=== PATIENT | male | born 1980 | race Caucasian/White ===

== ENCOUNTER 2016-10-03 07:17 | Emergency (ER) | payer SELFPAY ==
[~2016-10-03] VITALS: Ht 175.3 cm; Wt 81.8 kg
[2016-10-03 07:20] VITALS: TEMP 98.2
[2016-10-03 08:37] LABS: BASO # 0.1 (0.0-0.2); BASO % 1.3 % (0.0-2.0); EOS % 0.4 % (0-4.0); GRAN # 4.6 (1.4-6.5); GRAN % 57.2 % (42.2-75.2); HEMATOCRIT 42.6 % (42.0-52.0); HEMOGLOBIN 15.4 g/dl (13.5-18.0); LYMPH # 2.5 (1.2-3.4); LYMPH % 31.3 % (20.0-51.0); MEAN CELL VOLUME 97 fl (80.0-100.0); MEAN CORPUSCULAR HEMOGLOBIN 35 pg (27.0-31.0); MEAN CORPUSCULAR HGB CONC 36 g/dl (33.0-37.0); MEAN PLATELET VOLUME 10.7 fl (7.4-10.4); MONO # 0.8 (0.1-0.6); MONO % 9.5 % (1.7-9.3); PLATELET COUNT 168 K/mm3 (130-400); REDCELL DISTRIBUTION WIDTH-CV 12.6 % (11.5-14.5); WHITE BLOOD COUNT 7.9 K/mm3 (4.8-10.8)
[2016-10-03 09:16] LABS: ADJUSTED CALCIUM 8.7 mg/dL (8.4-10.2); ALANINE AMINOTRANSFERASE 80 U/L (21-72); ALBUMIN 4.4 gm/dL (3.5-5.0); ALKALINE PHOSPHATASE 57 U/L (50-136); ANION GAP 23 mmol/L (7-16); BLOOD UREA NITROGEN 11 mg/dL (9-20); CARBON DIOXIDE 23 mmol/L (22-30); CHLORIDE 98 mmol/L (98-107); CREATININE, serum 0.58 mg/dL (0.66-1.25); GLUCOSE 76 mg/dL (74-106); LIPASE 166 U/L (23-300); MAGNESIUM 1.7 mg/dL (1.6-2.3); POTASSIUM 3.8 mmol/L (3.4-5.0); SODIUM 143 mmol/L (137-145); TOTAL PROTEIN 7.3 gm/dL (6.4-8.2)
[2016-10-03 09:17] LABS: C-REACTIVE PROTEIN < 0.5 mg/dL (0.0-0.9)
[2016-10-03 09:24] LABS: TROPONIN-I < 0.012 ng/mL (0.000-0.034)
[2016-10-03 09:43] LABS: PH 5 (5-8); SQUAMOUS EPITHELIAL 0-2 /hpf; URINE APPEARANCE Clear; URINE BACTERIA None Seen /hpf; URINE BILIRUBIN Negative (NEGATIVE); URINE BLOOD Negative (NEGATIVE); URINE COLOR Yellow; URINE GLUCOSE Negative (NEGATIVE); URINE KETONE 1+ (NEGATIVE); URINE RBC 0-2 /hpf; URINE UROBILINOGEN Negative (NEGATIVE); URINE WBC 0-2 /hpf
[2016-10-03 09:51] LABS: AMMONIA < 9 umol/L (11-35)
[2016-10-03 12:18] VITALS: BP 111/70; PULSE 96
== END 2016-10-03 12:19 | disposition home or self-care (01) ==
LOC: COL.ER 07:17
PROVIDERS: Nurse Practitioner
DX: R10.11 Right upper quadrant pain (principal); R10.12 Left upper quadrant pain; F17.210 Nicotine dependence, cigarettes, uncomplicated; F10.20 Alcohol dependence, uncomplicated; Y90.8 Blood alcohol level of 240 mg/100 ml or more; R91.8 Other nonspecific abnormal finding of lung field
CPT/HCPCS: J3411; J3475; J7030

== ENCOUNTER 2018-04-28 13:20 | Emergency (ER) | payer SELFPAY ==
[~2018-04-28] VITALS: Ht 175.3 cm; Wt 81.8 kg
[2018-04-28 13:41] VITALS: TEMP 98.5
[2018-04-28 14:00] LABS: HEMATOCRIT 45.3 % (42.0-52.0); HEMOGLOBIN 16.1 g/dl (13.5-18.0); MEAN CELL VOLUME 98 fl (80.0-100.0); MEAN CORPUSCULAR HEMOGLOBIN 35 pg (27.0-31.0); MEAN CORPUSCULAR HGB CONC 36 g/dl (33.0-37.0); MEAN PLATELET VOLUME 11.5 fl (7.4-10.4); PLATELET COUNT 170 K/mm3 (130-400); RED BLOOD COUNT 4.61 M/mm3 (4.20-5.60); REDCELL DISTRIBUTION WIDTH-CV 12.8 % (11.5-14.5)
[2018-04-28 14:13] LABS: ALBUMIN 5.1 gm/dL (3.5-5.0); BILIRUBIN,TOTAL 2.7 mg/dL (0.0-1.0); CALCIUM 10.1 mg/dL (8.4-10.2); CREATININE, serum 1.02 mg/dL (0.66-1.25); POTASSIUM 3.9 mmol/L (3.4-5.0); TOTAL PROTEIN 9.1 gm/dL (6.4-8.2)
[2018-04-28 14:22] LABS: BAND 16 % (0-10); LYMPHOCYTE 7 % (20.0-51.0); NEUTROPHILS 67 % (42.0-75.2); PLATELET ESTIMATE NORMAL (NORMAL)
[2018-04-28] MEDS ORDERED: ZOFRAN ODT8 MG PO (15:16)
[2018-04-28] MEDS ORDERED: PROTONIX 40MG T40 MG PO (15:59)
[2018-04-28] MEDS ORDERED: CARAFATE 1GM1 G PO (15:59)
[2018-04-28 16:22] LABS: COLLECTION METHOD CLEAN CATCH
[2018-04-28 16:29] LABS: PH 7 (5-8); SQUAMOUS EPITHELIAL None Seen /hpf; URINE APPEARANCE Clear; URINE BACTERIA None Seen /hpf; URINE BILIRUBIN Negative (NEGATIVE); URINE BLOOD Negative (NEGATIVE); URINE COLOR Yellow; URINE GLUCOSE Negative (NEGATIVE); URINE KETONE 1+ (NEGATIVE); URINE LEUKOCYTE ESTERASE Negative (NEGATIVE); URINE NITRATE Negative (NEGATIVE); URINE PROTEIN(semi-quant) Negative (NEGATIVE); URINE RBC 0-2 /hpf; URINE WBC 0-2 /hpf
[2018-04-28 16:51] VITALS: BP 125/93; PULSE 103
== END 2018-04-28 16:52 | disposition home or self-care (01) ==
LOC: COL.ER 13:20
PROVIDERS: Emergency Medicine
DX: K29.70 Gastritis, unspecified, without bleeding (principal); F17.210 Nicotine dependence, cigarettes, uncomplicated
CPT/HCPCS: C9113; J2060; J2405; J2550; J7030; Q9967

== ENCOUNTER 2019-09-16 11:14 | Emergency (ER) | payer SELFPAY ==
[~2019-09-16] VITALS: Ht 175.3 cm; Wt 81.8 kg
[~2019-09-16 11:14] MED LIST: CARAFATE 1GM1 G PO; PROTONIX 40MG T40 MG PO; ZOFRAN ODT8 MG PO
[2019-09-16 11:24] VITALS: TEMP 97.8
[2019-09-16 12:08] LABS: HEMATOCRIT 45.6 % (42.0-52.0); HEMOGLOBIN 16.9 g/dl (13.5-18.0); MEAN CELL VOLUME 89 fl (80.0-100.0); MEAN CORPUSCULAR HEMOGLOBIN 33 pg (27.0-31.0); MEAN CORPUSCULAR HGB CONC 37 g/dl (33.0-37.0); MEAN PLATELET VOLUME 11.4 fl (7.4-10.4); PLATELET COUNT 165 K/mm3 (130-400); REDCELL DISTRIBUTION WIDTH-CV 13.8 % (11.5-14.5)
[2019-09-16 12:18] LABS: ALBUMIN 5.1 gm/dL (3.5-5.0); BILIRUBIN,TOTAL 2.2 mg/dL (0.0-1.0); C-REACTIVE PROTEIN 3.2 mg/dL (0.0-0.9); CALCIUM 9.9 mg/dL (8.4-10.2); CREATININE, serum 1.01 (0.66-1.25); MAGNESIUM 2.3 mg/dL (1.6-2.3); TOTAL PROTEIN 9.2 gm/dL (6.4-8.2)
[2019-09-16 12:21] LABS: POTASSIUM 2.6 mmol/L (3.4-5.0)
[2019-09-16 12:40] LABS: BAND 24 % (0-10); LYMPHOCYTE 5 % (20.0-51.0); NEUTROPHILS 62 % (42.0-75.2); PLATELET ESTIMATE NORMAL (NORMAL)
[2019-09-16 13:48] LABS: COLLECTION METHOD CLEAN CATCH
[2019-09-16 13:57] LABS: PH 6 (5-8); SQUAMOUS EPITHELIAL None Seen /hpf; URINE APPEARANCE Clear; URINE BACTERIA None Seen /hpf; URINE BILIRUBIN Negative (NEGATIVE); URINE BLOOD 1+ (NEGATIVE); URINE COLOR Yellow; URINE GLUCOSE Negative (NEGATIVE); URINE KETONE 1+ (NEGATIVE); URINE LEUKOCYTE ESTERASE Negative (NEGATIVE); URINE NITRATE Negative (NEGATIVE); URINE PROTEIN(semi-quant) 1+ (NEGATIVE); URINE RBC 0-2 /hpf; URINE UROBILINOGEN Negative (NEGATIVE)
[2019-09-16] MEDS ORDERED: KLOR-CON SPRIN10 MEQ PO (14:00)
[2019-09-16] MEDS ORDERED: ZOFRAN ODT4 MG PO (14:00)
[2019-09-16 15:03] VITALS: BP 110/86; PULSE 100
== END 2019-09-16 15:00 | disposition home or self-care (01) ==
LOC: COL.ER 11:14
PROVIDERS: Emergency Medicine
DX: R11.2 Nausea with vomiting, unspecified (principal); R19.7 Diarrhea, unspecified; E88.89 Other specified metabolic disorders; E87.6 Hypokalemia; E87.1 Hypo-osmolality and hyponatremia; F10.20 Alcohol dependence, uncomplicated; F17.210 Nicotine dependence, cigarettes, uncomplicated
CPT/HCPCS: C9113; J2405; J7030; Q9967

== ENCOUNTER 2019-12-24 12:20 | Inpatient (IN) | payer SELFPAY ==
[~2019-12-24] VITALS: Ht 175.3 cm; Wt 81.4 kg
[2019-12-24] VITALS (214 sets, daily range): BP systolic 118–125; BP diastolic 88–99; PULSE 98–103; TEMP 98–99.3; O2SAT 78–100
[~2019-12-24 12:20] MED LIST changes: +KLOR-CON SPRIN10 MEQ PO; +ZOFRAN ODT4 MG PO
[2019-12-24 13:19] LABS: INR 1.2 (0.8-3.0); PROTHROMBIN TIME 13.8 SECONDS (9.7-12.8)
[2019-12-24 13:28] LABS: ALBUMIN 3.9 gm/dL (3.5-5.0); ALKALINE PHOSPHATASE 183 U/L (50-136); ANION GAP 31 mmol/L (7-16); AST,SGOT 553 U/L (15-37); BLOOD UREA NITROGEN 18 mg/dL (9-20); CALCIUM 8.2 mg/dL (8.4-10.2); CARBON DIOXIDE 24 mmol/L (22-30); CREATININE, serum 0.94 (0.66-1.25); GLUCOSE 129 mg/dL (74-106); TOTAL PROTEIN 7.1 gm/dL (6.4-8.2)
[2019-12-24 13:34] LABS: ALANINE AMINOTRANSFERASE 195 U/L (4-49)
[2019-12-24 13:38] LABS: TROPONIN-I 0.015 ng/mL (0.000-0.035)
[2019-12-24 13:41] LABS: HEMATOCRIT 41.6 % (42.0-52.0); HEMOGLOBIN 15.7 g/dl (13.5-18.0); MEAN CELL VOLUME 91 fl (80.0-100.0); MEAN CORPUSCULAR HEMOGLOBIN 34 pg (27.0-31.0); MEAN CORPUSCULAR HGB CONC 38 g/dl (33.0-37.0); MEAN PLATELET VOLUME 13.3 fl (7.4-10.4); PLATELET COUNT 73 K/mm3 (130-400); RED BLOOD COUNT 4.57 M/mm3 (4.20-5.60); REDCELL DISTRIBUTION WIDTH-CV 11.3 % (11.5-14.5)
[2019-12-24 13:43] LABS: PROLACTIN 34.7 ng/mL (3.7-17.9)
[2019-12-24 13:45] LABS: ALCOHOL(ethanol),MEDICAL < 10 mg/dL
[2019-12-24 13:49] LABS: POTASSIUM 2.2 mmol/L (3.4-5.0); SODIUM 115 mmol/L (137-145)
[2019-12-24 13:50] LABS: CHLORIDE 60 mmol/L (98-107)
[2019-12-24 13:51] LABS: BAND 14 % (0-10); EOSINOPHIL 2 % (0-4); LYMPHOCYTE 6 % (20.0-51.0); NEUTROPHILS 57 % (42.0-75.2)
[2019-12-24 13:52] LABS: METAMYELOCYTE 1 % (0-0); PLATELET ESTIMATE DECREASED (NORMAL)
[2019-12-24 20:25] LABS: CALCIUM 7.7 mg/dL (8.4-10.2); CREATININE, serum 0.68 (0.66-1.25)
[2019-12-24 20:28] LABS: POTASSIUM 2.9 mmol/L (3.4-5.0)
--- NOTE | 2019-12-24 21:55 | NUR ---
Updated hospitalist regarding patient status. Patient incontinent of large amount of urine multiple times this shift. Will attempt to place male external catheter.
[2019-12-25] VITALS (680 sets, daily range): BP systolic 117–129; BP diastolic 82–98; PULSE 103–113; TEMP 97.6–98.8; O2SAT 75–100
--- NOTE | 2019-12-25 01:00 | NUR ---
Patient disoriented to time and place. Patient will follow basic commands and will respond to verbal questions although responses are often non-sensical. Is also frequently heard talking to himself. Restless in bed and pulling and wires and tubes. Mitts placed on hands. Will continue to monitor.
[2019-12-25 05:37] LABS: MEAN CELL VOLUME 91 fl (80.0-100.0); MEAN CORPUSCULAR HGB CONC 38 g/dl (33.0-37.0); MEAN PLATELET VOLUME 13.5 fl (7.4-10.4); PLATELET COUNT 111 K/mm3 (130-400); RED BLOOD COUNT 3.51 M/mm3 (4.20-5.60); REDCELL DISTRIBUTION WIDTH-CV 11.5 % (11.5-14.5)
[2019-12-25 05:41] LABS: MEAN CORPUSCULAR HEMOGLOBIN 34 pg (27.0-31.0)
[2019-12-25 05:54] LABS: ALBUMIN 3.5 gm/dL (3.5-5.0); BILIRUBIN,TOTAL 11.4 mg/dL (0.0-1.0); CALCIUM 7.8 mg/dL (8.4-10.2); CREATININE, serum 0.52 (0.66-1.25); MAGNESIUM 2.1 mg/dL (1.6-2.3); TOTAL PROTEIN 6.6 gm/dL (6.4-8.2)
[2019-12-25 06:05] LABS: BAND 16 % (0-10); LYMPHOCYTE 19 % (20.0-51.0); NEUTROPHILS 44 % (42.0-75.2)
[2019-12-25 06:06] LABS: PLATELET ESTIMATE DECREASED (NORMAL)
[2019-12-25 06:07] LABS: STOMATOCYTE 1+
[2019-12-25 06:11] LABS: POTASSIUM 2.9 mmol/L (3.4-5.0)
[2019-12-25 08:42] LABS: TRICYCLIC ANTIDEPRESS URINE NEGATIVE
[2019-12-25 12:02] LABS: ARTERIAL BLD GAS O2 SATURATION 96.3 % (92-100); ARTERIAL BLD GAS TCO2 CT 29.8; ARTERIAL BLOOD GAS BASE EXCESS 5.7 (-2-2); ARTERIAL BLOOD GAS HCO3 28.7 meq/L (22-26); ARTERIAL BLOOD GAS PCO2 35.9 mmHg (35-45); ARTERIAL BLOOD GAS PO2 78.4 mmHg (80-100); ARTERIAL BLOOD GAS pH 7.52 (7.35-7.45)
[2019-12-25 12:21] LABS: CALCIUM 8.2 mg/dL (8.4-10.2); CREATININE, serum 0.52 (0.66-1.25); POTASSIUM 3.4 mmol/L (3.4-5.0)
[2019-12-25 17:20] LABS: COLLECTION METHOD CLEAN CATCH
[2019-12-25 17:45] LABS: PH 7 (5-8); SQUAMOUS EPITHELIAL None Seen /hpf; URINE APPEARANCE Clear; URINE BACTERIA None Seen /hpf; URINE BILIRUBIN Positive (NEGATIVE); URINE BLOOD 1+ (NEGATIVE); URINE COLOR Amber; URINE GLUCOSE Negative (NEGATIVE); URINE KETONE 1+ (NEGATIVE); URINE LEUKOCYTE ESTERASE Negative (NEGATIVE); URINE NITRATE Negative (NEGATIVE); URINE PROTEIN(semi-quant) 1+ (NEGATIVE); URINE RBC 0-2 /hpf; URINE UROBILINOGEN >=4.0 mg/dL (NEGATIVE); URINE WBC 0-2 /hpf
[2019-12-26] VITALS (456 sets, daily range): BP systolic 110–137; BP diastolic 63–102; PULSE 48–121; TEMP 97.8–100.5; O2SAT 84–100
[2019-12-26] LABS: ARTERIAL BLD GAS O2 SATURATION 93.8 % (92-100); ARTERIAL BLD GAS TCO2 CT 30.1; ARTERIAL BLOOD GAS BASE EXCESS 4.9 (-2-2); ARTERIAL BLOOD GAS HCO3 28.9 meq/L (22-26); ARTERIAL BLOOD GAS PCO2 40.3 mmHg (35-45); ARTERIAL BLOOD GAS PO2 63.4 mmHg (80-100); ARTERIAL BLOOD GAS pH 7.47 (7.35-7.45)
--- NOTE | 2019-12-26 00:25 | NUR ---
RN HAD NOTICED PT TO BECOME TACHYPNEIC AROUND 2300 AND ASKED ME TO ASSESS, AFTER ENCOURAGING COUGHING TO REMOVE SECRETIONS, AN ABG WAS PERFORMED. PT WAS MODERATELY HYPOXIC, HOWEVER PH, PCO2 AND HCO3 WERE ACCEPTABLE. CHEMA REQUESTED USE OF BIPAP, HOWEVER THIS PT HAS MITS ON DUE TO HIS ERRATIC BEHAVIOR. I VOICED MY CONCERN FOR PLACING HIM ON BIAPAP DUE TO THE POSSIBILITY THAT THE PATIENT COULD NOT REMOVE THE MASK IF HE NEEDED TO. I CALLED ENGINE CLEANER AND WAS TOLD "SHE DIDNT WANT TO ARGUE" SO I WAS TO BRING THE BIPAP I WAS TOLD. THIS IS IN VIOLATION OF POLICY. THE PATIENT WAS PLACED ON THE BIPAP AT 0022.
--- NOTE | 2019-12-26 00:30 | NUR ---
REPORT RECEIVED FROM BONNY VILLAVICENCIO. CARE ASSUMED AT THIS TIME.
--- NOTE | 2019-12-26 00:52 | NUR ---
PT CURRENTLY ON BIPAP AT 30% OF FIO2. PT'S VS FOLLOWS: BP 125/91, HRT 121, O2 AT 96%, RR 27, AND TEMP OF 98.9. PT HAS CORSE LUNG SOUNDS AND FREQUENTLY HAS HICCUPS. PT AWAKENS OCCASIONALLY TO VOICE WITH INCOMPREHENSIBLE SOUNDS. WILL CONTINU MONITORING.
[2019-12-26 03:41] LABS: ARTERIAL BLD GAS O2 SATURATION 96.8 % (92-100); ARTERIAL BLD GAS TCO2 CT 29.8; ARTERIAL BLOOD GAS BASE EXCESS 4.7 (-2-2); ARTERIAL BLOOD GAS HCO3 28.6 meq/L (22-26); ARTERIAL BLOOD GAS PCO2 39.7 mmHg (35-45); ARTERIAL BLOOD GAS PO2 82.1 mmHg (80-100); ARTERIAL BLOOD GAS pH 7.48 (7.35-7.45)
[2019-12-26 06:06] LABS: HEMOGLOBIN 11.3 g/dl (13.5-18.0); MEAN CORPUSCULAR HEMOGLOBIN 35 pg (27.0-31.0); MEAN CORPUSCULAR HGB CONC 36 g/dl (33.0-37.0); MEAN PLATELET VOLUME 12.4 fl (7.4-10.4); PLATELET COUNT 147 K/mm3 (130-400); RED BLOOD COUNT 3.23 M/mm3 (4.20-5.60); REDCELL DISTRIBUTION WIDTH-CV 11.8 % (11.5-14.5)
[2019-12-26 06:12] LABS: HEMATOCRIT 31.3 % (42.0-52.0); MEAN CELL VOLUME 97 fl (80.0-100.0)
[2019-12-26 06:14] LABS: ALBUMIN 3.2 gm/dL (3.5-5.0); BILIRUBIN,TOTAL 12.6 mg/dL (0.0-1.0); CALCIUM 8.1 mg/dL (8.4-10.2); CREATININE, serum 0.55 (0.66-1.25); MAGNESIUM 1.7 mg/dL (1.6-2.3); POTASSIUM 3.4 mmol/L (3.4-5.0); TOTAL PROTEIN 6.4 gm/dL (6.4-8.2)
[2019-12-26 06:19] LABS: INR 1.2 (0.8-3.0); PROTHROMBIN TIME 13.5 SECONDS (9.7-12.8)
--- NOTE | 2019-12-26 07:04 | NUR ---
REPORT GIVEN TO BONNY PIMENTEL.
[2019-12-26 07:17] LABS: ANISOCYTOSIS 1+; BAND 40 % (0-10); EOSINOPHIL 1 % (0-4); LYMPHOCYTE 20 % (20.0-51.0); NEUTROPHILS 27 % (42.0-75.2); PLATELET ESTIMATE NORMAL (NORMAL)
--- NOTE | 2019-12-26 08:00 | NUR ---
BiPap removed to perfrom neuro assessment - Oxymask applied at 2L and is stable Pt required multiple shoulder taps to open eyes, eyes would remain open no longer than 6seconds at a time. Pt able to state he is in hospital but "unsure what happened". Pt able to follow commands with equal strength in all extremities - able to lift head off bed upon command Able to state name and mumbles birthdate Pt has occasional hiccup MD Diego notified of findings - Head CT added. Radiology called at 0950 BiPap off and bilateral mitts applied due to attempts at reaching for IV and [place]ppard tubing SpO2 remains 98% or greater HR SR < 100 mostly with occasional PVC MD Yosi to be notified of consultation upon arrival to unit
--- NOTE | 2019-12-26 11:24 | NUR ---
Patient could not tolerate assessment and so SW contacted patients mother Sandie at [phone]. Sandie is patient's care support and EMR. Patient does not have a DPOA, and no DME. Patient also does not have a current PCP, and he gets his medications from [facility] from [facility] with no concerns per patient's mother. Patient is self pay, so may need financial support, and may need to establish a PCP while at [facility]. SW will continue to monitor.
--- NOTE | 2019-12-26 11:29 | NUR ---
Pt's next of kin (mother) Sandie updated by MD Diego - all questions answered
--- NOTE | 2019-12-26 20:00 | NUR ---
Patient drowsy and speech is mumbled and difficult to understand. Will follow basic commands appropriately. Able to tell this nurse that he is in [place] in the hopital but unable to answer questions beyond that. Swallowed water and had 1/2 of a pudding cup without difficulty. Will continue to monitor.
[2019-12-27] VITALS (818 sets, daily range): BP systolic 97–117; BP diastolic 64–82; PULSE 85–100; TEMP 97.7–99; O2SAT 44–100
--- NOTE | 2019-12-27 03:59 | NUR ---
Resting quietly in bed; patient drowsy but will awaken easily with verbal stimulation and follow basic commands. Will continue to monitor.
[2019-12-27 05:57] LABS: HEMOGLOBIN 10.7 g/dl (13.5-18.0); MEAN CELL VOLUME 98 fl (80.0-100.0); MEAN CORPUSCULAR HEMOGLOBIN 35 pg (27.0-31.0); MEAN CORPUSCULAR HGB CONC 35 g/dl (33.0-37.0); MEAN PLATELET VOLUME 12.3 fl (7.4-10.4); PLATELET COUNT 211 K/mm3 (130-400); RED BLOOD COUNT 3.09 M/mm3 (4.20-5.60); REDCELL DISTRIBUTION WIDTH-CV 12.2 % (11.5-14.5)
[2019-12-27 05:58] LABS: HEMATOCRIT 30.3 % (42.0-52.0)
[2019-12-27 06:02] LABS: ALBUMIN 2.9 gm/dL (3.5-5.0); BILIRUBIN,TOTAL 9.7 mg/dL (0.0-1.0); CREATININE, serum 0.43 (0.66-1.25); MAGNESIUM 1.7 mg/dL (1.6-2.3); POTASSIUM 3.5 mmol/L (3.4-5.0); TOTAL PROTEIN 6.1 gm/dL (6.4-8.2)
[2019-12-27 06:25] LABS: BAND 48 % (0-10); LYMPHOCYTE 11 % (20.0-51.0); METAMYELOCYTE 6 % (0-0); NEUTROPHILS 21 % (42.0-75.2); PLATELET ESTIMATE NORMAL (NORMAL)
--- NOTE | 2019-12-27 10:51 | NUR ---
SW met with the patient to follow up and discuss discharge plan. The patient mumbled when speaking and was difficult to understand. He remains in [facility]. The patient reports that he lives alone in [place]. He states that he is not and has one child, Kim. He states that Kim is [id number]. SW attempted to contact the patient's mother, Sandie, to update and follow up. SW left her a voicemail.
[2019-12-27 13:30] LABS: PHOSPHOROUS 0.7 mg/dL (2.5-4.5)
[2019-12-27 13:37] LABS: PRE ALBUMIN 15.2 mg/dL (17.6-36.0)
--- NOTE | 2019-12-27 14:15 | NUR ---
MARIZA received a phone call back from the patient's mother, Sandie. Sandie confirms that the patient is not and only has an [id number] daughter, but she was adopted. Sandie verbalizes that she would be the patient's next-of-kin and is agreeable to this. Sandie asked for a medical update on the patient's status. MARIZA notified the patient's RN. MARIZA to continue to follow.
[2019-12-27 22:35] LABS: MAGNESIUM 1.7 mg/dL (1.6-2.3); POTASSIUM 3.9 mmol/L (3.4-5.0)
[2019-12-28] VITALS (384 sets, daily range): BP systolic 96–124; BP diastolic 54–90; PULSE 85–104; TEMP 97.5–99.3; O2SAT 71–100
--- NOTE | 2019-12-28 01:26 | NUR ---
Patient drowsy but continues to follow commands and respond verbally to this nurse. Has been pulling at monitoring leads and gallardo. Mitts applied at this time. Will continue to monitor.
[2019-12-28 05:40] LABS: HEMOGLOBIN 10.4 g/dl (13.5-18.0); MEAN CELL VOLUME 102 fl (80.0-100.0); MEAN CORPUSCULAR HEMOGLOBIN 35 pg (27.0-31.0); MEAN CORPUSCULAR HGB CONC 34 g/dl (33.0-37.0); MEAN PLATELET VOLUME 12.1 fl (7.4-10.4); PLATELET COUNT 287 K/mm3 (130-400); RED BLOOD COUNT 2.99 M/mm3 (4.20-5.60); REDCELL DISTRIBUTION WIDTH-CV 13.1 % (11.5-14.5)
[2019-12-28 05:48] LABS: HEMATOCRIT 30.6 % (42.0-52.0)
[2019-12-28 06:00] LABS: BAND 26 % (0-10); EOSINOPHIL 1 % (0-4); LYMPHOCYTE 20 % (20.0-51.0); METAMYELOCYTE 2 % (0-0); NEUTROPHILS 42 % (42.0-75.2)
[2019-12-28 06:01] LABS: CALCIUM 7.8 mg/dL (8.4-10.2); CREATININE, serum 0.4 (0.66-1.25); HYPOCHROMIA 1+; MAGNESIUM 1.6 mg/dL (1.6-2.3); PHOSPHOROUS 1.6 mg/dL (2.5-4.5); PLATELET ESTIMATE NORMAL (NORMAL); POTASSIUM 3.4 mmol/L (3.4-5.0); STOMATOCYTE 2+
[2019-12-28 06:02] LABS: TARGET CELLS 1+
--- NOTE | 2019-12-28 10:53 | NUR ---
SW attended clinical rounds. The patient still remains confused and going through alcohol withdrawals. The patient is self pay. SW contacted Financial Counselor, Mary, to follow up on assistance for the patient. Mary reports that at this time, the patient would only qualify for a Financial Assistance Application. SW to continue to follow.
[2019-12-28 21:12] LABS: MAGNESIUM 1.4 mg/dL (1.6-2.3); PHOSPHOROUS 2.7 mg/dL (2.5-4.5); POTASSIUM 3.8 mmol/L (3.4-5.0)
--- NOTE | 2019-12-28 23:29 | NUR ---
Pt arrived to medical unit around 1999. Report received from ICU nurse, Marilou. Pt oriented to room, med rec and assessment completed. Pt drowsy but easily arousable to voice. Oriented to person and place, disoriented to time. Speech slurred but comprehensible. Pt able to follow commands, lifts and holds all extremities, hand face worker equal. Pupils equal and reactive bilaterally, unable to open eyes fully. Heart rate slightly elevated at 102 bpm, respirations 30, BP 96/72, oxygen saturation 93% RA, afebrile. Attempted to give pt Thiamine tablet with sip of water, pt began coughing and spit pill back up. All other assessment findings within normal parameters at this time. PICC to right upper arm intact, NS running to red port at 60 ml/hr, TPN running to purple port at 42 ml/hr. Side rails padded and seizure precautions in place. Will continue to monitor.
[2019-12-29] VITALS (13 sets, daily range): BP systolic 99–131; BP diastolic 62–85; PULSE 87–101; TEMP 97.5–99.6
--- NOTE | 2019-12-29 05:35 | NUR ---
Pt has rested in bed throughout shift without complaint. Alcohol detox scores done every 2 hours, pt scored no higher than 3. Magnesium sulfate given as ordered due to magnesium level of 1.4. IV antibiotics administered as ordered. Pt had several incontinent episodes. Pt aspirated on a pill when administered, tolerated sips of water without aspiration.
[2019-12-29 06:10] LABS: HEMOGLOBIN 10.1 g/dl (13.5-18.0); MEAN CELL VOLUME 103 fl (80.0-100.0); MEAN CORPUSCULAR HEMOGLOBIN 34 pg (27.0-31.0); MEAN CORPUSCULAR HGB CONC 33 g/dl (33.0-37.0); MEAN PLATELET VOLUME 12.3 fl (7.4-10.4); PLATELET COUNT 286 K/mm3 (130-400); RED BLOOD COUNT 2.96 M/mm3 (4.20-5.60); REDCELL DISTRIBUTION WIDTH-CV 13.9 % (11.5-14.5)
[2019-12-29 06:11] LABS: HEMATOCRIT 30.6 % (42.0-52.0)
[2019-12-29 06:28] LABS: BAND 15 % (0-10); EOSINOPHIL 2 % (0-4); LYMPHOCYTE 21 % (20.0-51.0); METAMYELOCYTE 3 % (0-0); NEUTROPHILS 43 % (42.0-75.2)
[2019-12-29 06:30] LABS: PLATELET ESTIMATE NORMAL (NORMAL)
[2019-12-29 06:31] LABS: CALCIUM 7.9 mg/dL (8.4-10.2); CREATININE, serum 0.44 (0.66-1.25); MAGNESIUM 1.9 mg/dL (1.6-2.3); PHOSPHOROUS 2.8 mg/dL (2.5-4.5); POTASSIUM 3.6 mmol/L (3.4-5.0)
--- NOTE | 2019-12-29 10:11 | NUR ---
Pt assessment complete. Pt is sitting up in bed with eyes closed on entry, arouses to voice. Scleras yellow. He is A/O x4. His breathing is tachy with occasional wet cough. Pt denies any pain. Pt took his pills with thin liquids, occasional coughing present. ST at bedside during this time, requested to be present at lunch. TPN and NS infusing without complications. Seizure and fall precautions in place. Will continue to monitor.
--- NOTE | 2019-12-29 10:45 | NUR ---
Visit attempts; Following several attempts, General Superintendent left Prayer Card to inform patient of the availability of Spiritual Care at [facility].
--- NOTE | 2019-12-29 11:11 | NUR ---
Pt leaving for MRI at this time.
--- NOTE | 2019-12-29 16:24 | NUR ---
Process Control Manager collaborated with SAYRA Negron about PT recommendation for post acute rehab. Patient does not have insurance coverage and Mary Financial Counselor has been consulted. MARIZA met with patient who would be agreeable to [facility] if they would be able to take him without insurance. MARIZA contacted Rosalba [facility] Director to give referral. MARIZA contacted patient's mother, Sandie to provide update. MARIZA will contiue to follow.
--- NOTE | 2019-12-29 19:10 | NUR ---
Report received from BONNY Mcfarlane. Pt sittin up in bed eating dinner, denies needs at this time.
--- NOTE | 2019-12-29 19:21 | NUR ---
Pt was A/O through the day. Able to carry on a conversation with staff. Ambulated a few times to the restroom and up to the recliner. External catheter in place, draining yellow urine.
--- NOTE | 2019-12-29 21:47 | NUR ---
Assessment completed. Pt has unproductive cough. External catheter in place, urine is dark yellow/orange in color and clear. Pt able to ambulate to bathroom, 1 assist with walker. Pt had BM, stool was watery and brown. PICC to right upper arm in place, blood return noted and flushes easily both ports, caps changed, NS running at 60 ml/hr, TPN discontinued per orders. Pt alert and oriented, generalized weakness noted, hand bar supervisor equal. Seizure precautions continued. Oral medications crushed and administered in applesauce. HR slightly elevated at 101. No other abnormal findings noted.
[2019-12-30] VITALS (11 sets, daily range): BP systolic 104–128; BP diastolic 66–88; PULSE 75–96; TEMP 97.5–98.8
--- NOTE | 2019-12-30 05:48 | NUR ---
Pt resting in bed throughout shift. Continuing to have incontinent urine episodes. Calls out when he has the urge to urinate, urinates before he can get to toilet or urinal. Pt is able to get to toilet prior to having BMs. Has been reporting pain to right forearm, unable to describe pain but rated at 9/10. PRN Motrin given, reported partial relief.
[2019-12-30 07:39] LABS: BASO # 0.1 (0.0-0.2); BASO % 0.7 % (0.0-2.0); EOS # 0.2 (0.0-0.7); EOS % 1.6 % (0-4.0); GRAN # 7.4 (1.4-6.5); GRAN % 58.1 % (42.2-75.2); LYMPH # 2.5 (1.2-3.4); LYMPH % 19.6 % (20.0-51.0); MEAN CORPUSCULAR HGB CONC 32 g/dl (33.0-37.0); MEAN PLATELET VOLUME 12.3 fl (7.4-10.4); MONO # 1.8 (0.1-0.6); MONO % 14.1 % (1.7-9.3); PLATELET COUNT 272 K/mm3 (130-400); RED BLOOD COUNT 2.77 M/mm3 (4.20-5.60); REDCELL DISTRIBUTION WIDTH-CV 14.6 % (11.5-14.5)
[2019-12-30 07:45] LABS: HEMATOCRIT 29.9 % (42.0-52.0); HEMOGLOBIN 9.6 g/dl (13.5-18.0); MEAN CELL VOLUME 108 fl (80.0-100.0); MEAN CORPUSCULAR HEMOGLOBIN 35 pg (27.0-31.0)
[2019-12-30 07:46] LABS: ALBUMIN 2.8 gm/dL (3.5-5.0); BILIRUBIN,TOTAL 3.6 mg/dL (0.0-1.0); CALCIUM 8.1 mg/dL (8.4-10.2); CREATININE, serum 0.5 (0.66-1.25); MAGNESIUM 1.5 mg/dL (1.6-2.3); PHOSPHOROUS 3.5 mg/dL (2.5-4.5); POTASSIUM 3.8 mmol/L (3.4-5.0); TOTAL PROTEIN 6.2 gm/dL (6.4-8.2)
--- NOTE | 2019-12-30 10:00 | NUR ---
Pt assessment completed and charted. Medications administered per jul, crushed in applesauce. Pt is A&O, SBA w/ walker in room. Pt has HARSH PICC, flush w/ good blood return. Pt on room air, breathing even and unlabored, denies SOB. Pt denies chest pain, N/V/D. Pt incontinent w/ bladder, brief changed. Pulses strong bilaterally. BS active X4. Heart RRR. Pt not scoring on CIWA scale, seizure precautions in place. UL bilaterally clear, bilateral bases diminished. No further needs expressed. Call light within reach, bed alarm on.
--- NOTE | 2019-12-30 10:25 | NUR ---
Several visit attempts; Door Frame Builder left prayer card along with Door Frame Builder's name so that patient can contact Door Frame Builder concerning his needs.
--- NOTE | 2019-12-30 16:44 | NUR ---
Payloader Machine Operator spoke with Rosalba IPR Director who declined referral at this time. MARIZA contacted Sandie, patient's mother to provide update. MARIZA spoke with DWAYNE Brian to advise that without insurance, patient will not have any placement options. Roc reports patient has made gains and that they will be working on stairs. SW did contact Deloris at [facility] and left a message. SW met with patient to provide update. SW spoke with patient about [facility]. Patient is agreeable to this but states he lives in [place] and does not have transportation. SW advised address listed was [facility]. Patient states his address is in [place]. Patient is agreeable to an appointment if transportation can be arranged. SW will follow up.
--- NOTE | 2019-12-30 22:20 | NUR ---
PT IN BED WITH HOB ELEVATED TO 90 DEGREE ANGLE, DENIES PAIN OR DISCOMFORT. PT IS A/O X3, PLEASANT AND COOPERATIVE. CALL LIGHT WITHIN REACH.
[2019-12-31] VITALS (12 sets, daily range): BP systolic 96–127; BP diastolic 70–94; PULSE 74–94; TEMP 97.8–99.9
--- NOTE | 2019-12-31 06:20 | NUR ---
NO ISSUE THIS NIGHT. PT DID NOT SLEEP WELL THIS NIGHT. PT DID HAVE SOME C/O PAIN IN RIGHT ARM THAT IS BRUISED. GAVE IBU FOR PAIN. CALL LIGHT WITHIN REACH.
[2019-12-31 07:43] LABS: MEAN CELL VOLUME 108 fl (80.0-100.0); MEAN CORPUSCULAR HGB CONC 33 g/dl (33.0-37.0); MEAN PLATELET VOLUME 11.8 fl (7.4-10.4); PLATELET COUNT 293 K/mm3 (130-400); RED BLOOD COUNT 2.53 M/mm3 (4.20-5.60); REDCELL DISTRIBUTION WIDTH-CV 14.6 % (11.5-14.5)
[2019-12-31 07:54] LABS: MAGNESIUM 1.5 mg/dL (1.6-2.3); PHOSPHOROUS 4.2 mg/dL (2.5-4.5)
[2019-12-31 07:59] LABS: HEMATOCRIT 27.2 % (42.0-52.0); HEMOGLOBIN 8.9 g/dl (13.5-18.0); MEAN CORPUSCULAR HEMOGLOBIN 35 pg (27.0-31.0)
--- NOTE | 2019-12-31 08:14 | NUR ---
Pt care being provided by this nurses rajesh Shah RN.
[2019-12-31 08:28] LABS: BAND 13 % (0-10); EOSINOPHIL 2 % (0-4); LYMPHOCYTE 27 % (20.0-51.0); NEUTROPHILS 47 % (42.0-75.2); PLATELET ESTIMATE NORMAL (NORMAL)
[2019-12-31 09:42] LABS: ALBUMIN 2.6 gm/dL (3.5-5.0); BILIRUBIN,TOTAL 2.8 mg/dL (0.0-1.0); CALCIUM 7.6 mg/dL (8.4-10.2); CREATININE, serum 0.46 (0.66-1.25); POTASSIUM 3.7 mmol/L (3.4-5.0); TOTAL PROTEIN 5.9 gm/dL (6.4-8.2)
--- NOTE | 2019-12-31 11:27 | NUR ---
Assessment charted. pt reported pain in the left forearm were there is bruising, denies pain anywhere else. Heart and Lung sounds are normal and clear. pulses equal bilaterally. pt took pills in half with water and had minimal coughing, swallowing fine. no cough present otherwise. denies shortness of breath and chest pain. no complaints at this time.
--- NOTE | 2019-12-31 15:59 | NUR ---
Procedure Rn followed up with patient to provide drug/alcohol resources. Patient states he will review list and think about it. SW reviewed AA and outpatient resources with patient. SW spoke with patient again about setting up an appointment at [facility] in [place] for primary care. Patient is agreeable to this and states he lives in [place]. SW will follow up on Friday to make appointment as [facility] is closed on Friday afternoons. SW contacted patient's mother, Sandie to provide update. Sandie states depending on appointment time, she could provide transportation for patient to follow up appointment. Sandie states patient has four steps getting into his apartment. SW shared this with PT, Pawel. SW will continue to follow.
--- NOTE | 2019-12-31 22:15 | NUR ---
Pt assessment completed, charted, roomair. Meds provided as per JUL, tolerated well. Alcohol detox protocal. Helped settled on bed, call light on reach. No further needs at this time.
[2020-01-01] VITALS (13 sets, daily range): BP systolic 100–123; BP diastolic 64–86; PULSE 74–110; TEMP 98.3–101
--- NOTE | 2020-01-01 06:37 | NUR ---
Pt slept on and off through out the night. Had fever 101.0 around 4 am, ibuprofen given and Ativan given per alcohol prtotocal. Morning meds provided as per JUL. No further needs at this time.
--- NOTE | 2020-01-01 08:00 | NUR ---
Patient sitting up on edge of bed eating breakfast. Alert and oriented x 3. Assessment complete. Picc line to HARSH without complications, fluids infusing per orders. Seizure precautions in place. Potassium replaced per orders. Educated patient on protocol. Tele in place. Patient denies pain or further needs at this time.
--- NOTE | 2020-01-01 17:44 | NUR ---
Patient has done well throughout the day. Minimal needs. Independent in room, steady gait. PICC line to HARSH without complications, fluids infusing per orders. Tolerating diet without complications. Taking meds cut in half, not crushed today; without difficulties. Denies further needs at this time. Will report off to gaming table operator.
--- NOTE | 2020-01-01 22:00 | NUR ---
Pt assessment completed, charted, alert, oriented, roomair. Meds provided as per MAR, tolerated well. Alcohol detox monitoring. No N/V/D, tingling, numbness, pain, SOA as per pt. Helped pt to settled down on his bed, call light on bed. No further needs at this time.
[2020-01-02] VITALS (9 sets, daily range): BP systolic 108–128; BP diastolic 70–84; PULSE 85–105; TEMP 98.3–99.2
--- NOTE | 2020-01-02 05:58 | NUR ---
Pt had an uneventful night, slept through out the night. No further needs at this time.
[2020-01-02 06:13] LABS: MEAN CELL VOLUME 109 fl (80.0-100.0); MEAN CORPUSCULAR HEMOGLOBIN 36 pg (27.0-31.0); MEAN CORPUSCULAR HGB CONC 33 g/dl (33.0-37.0); MEAN PLATELET VOLUME 11.8 fl (7.4-10.4); PLATELET COUNT 358 K/mm3 (130-400); RED BLOOD COUNT 2.82 M/mm3 (4.20-5.60); REDCELL DISTRIBUTION WIDTH-CV 14.9 % (11.5-14.5)
[2020-01-02 06:18] LABS: HEMATOCRIT 30.7 % (42.0-52.0)
[2020-01-02 06:26] LABS: CREATININE, serum 0.46 (0.66-1.25); MAGNESIUM 1.6 mg/dL (1.6-2.3); POTASSIUM 4.1 mmol/L (3.4-5.0)
[2020-01-02 06:30] LABS: BAND 11 % (0-10); EOSINOPHIL 1 % (0-4); LYMPHOCYTE 31 % (20.0-51.0); NEUTROPHILS 36 % (42.0-75.2); PLATELET ESTIMATE NORMAL (NORMAL)
--- NOTE | 2020-01-02 09:57 | NUR ---
PT AOX4. DENIES PAIN, CP, FIELDS, VERTIGO. STEADY AMBULATION. REFUSING TO DRINK NECTAR THICK LIQUIDS ON TRAY. BEDSIDE WATER THIN AND SPEECH THERAPY PURPLE SHEET IN ROOM STATING THIN LIQUIDS. WILL CLARIFY. NO S/S ASPIRATION WITH HALF PILLS AD THIN LIQ
--- NOTE | 2020-01-02 11:47 | NUR ---
care transfered to Libertad RN @1905. bedside
--- NOTE | 2020-01-02 17:52 | NUR ---
Patient had an uneventful day. VSS, A&Ox3. Tolerated PO intake without any difficulty. No reported and seizures. Patient just wants to go home. No further needs expressed from the patient. Nurse updated the patients mother over the phone. Call light within reach
--- NOTE | 2020-01-02 20:10 | NUR ---
Patient assessed at this time. Alert and oriented. Reports level 9 pain to right arm. Bruising continues to area. Given PRN Motrin as requested for pain. Double lumen PICC to JOSE. Dressing CDI. Site is without redness, warmth, swelling, and pain. Denies having SOB and dyspnea. LS CTA. Respirations even and unlabored. HRR. Telemetry in place: sinus rhythm, tachy at times. Capillary refill less than 3 seconds. Non-tenting skin turgor. BSAx4. Abdomen soft and non-tender. No edema. Voices no questions, needs, or concerns at this time. Resting in bed with call light within reach.
[2020-01-03 03:52] VITALS: BP 103/68; PULSE 89; TEMP 98.3
--- NOTE | 2020-01-03 05:15 | NUR ---
Patient had received PRN Motrin once during the night for pain to right arm. Has denied having pain and discomfort when asked since. Has voiced no questions, needs, or concerns this shift. Patient has been taking self to the bathroom as needed. Steady on feet. Resting in bed with call light within reach.
[2020-01-03 07:16] VITALS: BP 104/70; PULSE 81; TEMP 98.1
[2020-01-03 07:20] LABS: HEMOGLOBIN 10.3 g/dl (13.5-18.0); MEAN CELL VOLUME 107 fl (80.0-100.0); MEAN CORPUSCULAR HEMOGLOBIN 35 pg (27.0-31.0); MEAN CORPUSCULAR HGB CONC 32 g/dl (33.0-37.0); MEAN PLATELET VOLUME 11.9 fl (7.4-10.4); PLATELET COUNT 364 K/mm3 (130-400); RED BLOOD COUNT 2.97 M/mm3 (4.20-5.60); REDCELL DISTRIBUTION WIDTH-CV 14.4 % (11.5-14.5)
[2020-01-03 07:26] LABS: ALBUMIN 3.3 gm/dL (3.5-5.0); BILIRUBIN,TOTAL 2.3 mg/dL (0.0-1.0); CALCIUM 9.1 mg/dL (8.4-10.2); CREATININE, serum 0.49 (0.66-1.25); MAGNESIUM 1.7 mg/dL (1.6-2.3); POTASSIUM 3.8 mmol/L (3.4-5.0); TOTAL PROTEIN 7.3 gm/dL (6.4-8.2)
[2020-01-03 07:33] LABS: HEMATOCRIT 31.8 % (42.0-52.0)
--- NOTE | 2020-01-03 10:31 | NUR ---
Initial visit; Patient thanked Animal Attendants And Trainers for looking in on him and offering God's blessings and letting Micheal know of the availability of spiritual care at our hospital.
[2020-01-03 10:37] LABS: BAND 10 % (0-10); BASOPHIL 1 % (0-2); EOSINOPHIL 1 % (0-4); LYMPHOCYTE 39 % (20.0-51.0); NEUTROPHILS 38 % (42.0-75.2)
[2020-01-03 10:38] LABS: PLATELET ESTIMATE NORMAL (NORMAL)
--- NOTE | 2020-01-03 10:45 | NUR ---
Tele called, leads off on pt. Pt walkign with therapy at the time. Pt back to room, two leads replaced.
--- NOTE | 2020-01-03 10:48 | NUR ---
Pt resting in chair. reports pain in the right forearm where bruising is present. denies pain anywhere else. Heart and lung sounds are normal, on room air. Took moring pills in half with water, no problems swallowing.
[2020-01-03 11:11] VITALS: BP 121/84; PULSE 97; TEMP 98.3
--- NOTE | 2020-01-03 15:00 | NUR ---
PICC intact right upper arm. With sterile technique right upper arm PICC dressing change done with insertion site cleansed with chloraprep x 1, chlorhexidine impregnated disk, skin prep, stat lock, and tegaderm applied. no signs or symptoms of IV complications noted. no concerns voiced. re-wrapped with bacilio to protect catheter.
[2020-01-03 16:02] VITALS: BP 111/65; PULSE 104; TEMP 98.7
[2020-01-03] MEDS ORDERED: KEPPRA 500MG500 MG PO (16:03)
[2020-01-03] MEDS ORDERED: MAG-OX 400400 MG/TAB PO (16:03)
[2020-01-03] MEDS ORDERED: THIAMINE 1100 MG/TAB PO (16:04)
[2020-01-03] MEDS ORDERED: FOLIC ACID 11 MG/TA1 PO (16:04)
[2020-01-03] MEDS ORDERED: DUO-KAPS1 CAP PO (16:04)
--- NOTE | 2020-01-03 16:34 | NUR ---
Starting Gate Driver collaborated with SAYRA Duvall and patient is ready for discharge today. MARIZA met with patient who states he needs his landlord to fix his stairs to make them more steady and also wants grab bars installed. MARIZA also assisted patient with completing Financial Assistance Application and turned it into Mary Financial Counselor. MARIZA contacted [facility] and made an appointment for 01/11/20 @ 1100 with an arrival time of 1030. MARIZA provided this appointment to patient, patient's mother Sandie, and oil well service unit operator. MARIZA contacted Lary at [facility] as patient lost his ID. MARIZA obtained copy from EMR and provided it to Lary who advised this will work for patient to be seen. MARIZA spoke with patient's mother, Sandie who reports she has obtained two different walkers for patient and will bring them down for him when she picks him up today. Sandie advised she would rather not have patient stay with her upon discharge because if he stays with her, she cannot see her grandchild. Sandie advised that she will check back in on patient on and suggested maybe patient had some friends that could check on him periodically. Sandie will be picking up patient today and taking him back to his apartment. Sandie advised she will contact patient's landlord to follow up on needed repairs. Sandie advised she will also work on purchasing a card with phone minutes on it for patient. MARIZA spoke with Sandie about [employer] as patient may need assistance with his rent if he is not able to return to work. [facility] is closed today so MARIZA was unable to give referral this day. Sandie advised she will take patient to milk pickup truck driver his medications and can cover the cost today. MARIZA met with patient again to review discharge plan. MARIZA asked patient if there was anyone that could check on him daily to make sure he's doing okay. Patient states there are people that can do this, but he doesn't want them to. Patient states he has a phone that he can call 911 on if needed. Patient denies any further questions.
--- NOTE | 2020-01-03 17:10 | NUR ---
Pt discharge instructions discussed and reviewed w/ patient who verbalized understanding. All questions answered. HARSH PICC dc'd by Hyacinth RN. No issues noted, discharge/education post PICC removal reviewed w/ patient. No further needs expressed. Pt escorted out via WC to ER entrance w/ ride awaiting.
== END 2020-01-03 17:15 | disposition home or self-care (01) | DRG 896 ==
LOC: COL.ER 12:20 → ICU 14:09 → MEDICAL 12-25 20:10 → ICU 12-28 20:02 → MEDICAL 12-28 21:00
PROVIDERS: Emergency Medicine; Family Medicine; Internal Medicine Pulmonary Disease; Nurse Practitioner Family; Physician Assistant; Student in an Organized Health Care Education/Training Program; Surgery; ADMIT Internal Medicine
PROC: 02HV33Z Insertion of Infusion Device into Superior Vena Cava, Percutaneous Approach (ICD-10-PCS; principal; 2019-12-27)
PROC: 3E0436Z Introduction of Nutritional Substance into Central Vein, Percutaneous Approach (ICD-10-PCS; 2019-12-27)
DX: F10.239 Alcohol dependence with withdrawal, unspecified (principal); J69.0 Pneumonitis due to inhalation of food and vomit; G93.41 Metabolic encephalopathy; E87.1 Hypo-osmolality and hyponatremia; E46 Unspecified protein-calorie malnutrition; E87.3 Alkalosis; E87.6 Hypokalemia; K74.60 Unspecified cirrhosis of liver; E83.42 Hypomagnesemia; D69.6 Thrombocytopenia, unspecified; F17.210 Nicotine dependence, cigarettes, uncomplicated; R56.9 Unspecified convulsions
CPT/HCPCS: 99223-AI; 99231-AI; 99232-AI; 99233-AI; 99239; A9585; C1751; J1650; J1953; J2060; J2543; J3411; J3475; J3480; J7030; J7050; Q9967

== ENCOUNTER 2020-11-24 07:25 | Inpatient (IN) | payer SELFPAY ==
[~2020-11-24] VITALS: Ht 177.8 cm; Wt 81.8 kg
[~2020-11-24 07:25] MED LIST changes: +DUO-KAPS1 CAP PO; +FOLIC ACID 11 MG/TA1 PO; +KEPPRA 500MG500 MG PO; +MAG-OX 400400 MG/TAB PO; +THIAMINE 1100 MG/TAB PO
[2020-11-24 08:09] LABS: BLOOD UREA NITROGEN 7 mg/dL (9-20); GLUCOSE 156 mg/dL (74-106)
[2020-11-24 08:10] LABS: ANION GAP 19 mmol/L (7-16); CALCIUM 10.7 mg/dL (8.4-10.2); CARBON DIOXIDE 26 mmol/L (22-30); CHLORIDE 92 mmol/L (98-107); CREATININE, serum 0.62 (0.66-1.25); POTASSIUM 3.4 mmol/L (3.4-5.0); SODIUM 137 mmol/L (137-145)
[2020-11-24 08:11] LABS: ALBUMIN 4.6 gm/dL (3.5-5.0); TOTAL PROTEIN 8.7 gm/dL (6.4-8.2)
[2020-11-24 08:12] LABS: ALANINE AMINOTRANSFERASE 100 U/L (4-49); ALKALINE PHOSPHATASE 203 U/L (50-136); AST,SGOT 385 U/L (15-37); BILIRUBIN,TOTAL 4.9 mg/dL (0.0-1.0)
[2020-11-24 08:22] LABS: LACTIC ACID 6.3 mmol/L (0.4-2.0)
[2020-11-24 08:32] LABS: TROPONIN-I < 0.012 ng/mL (0.000-0.035)
[2020-11-24 08:36] LABS: INR 1.2 (0.8-3.0); PROTHROMBIN TIME 13.7 SECONDS (9.7-12.8)
[2020-11-24 08:40] LABS: ALCOHOL(ethanol),MEDICAL < 10 mg/dL; LIPASE 107 U/L (23-300); MAGNESIUM 1.2 mg/dL (1.6-2.3)
[2020-11-24 08:43] LABS: BASO # 0.1 (0.0-0.2); BASO % 1.1 % (0.0-2.0); GRAN # 7.7 (1.4-6.5); GRAN % 85.4 % (42.2-75.2); HEMATOCRIT 40.4 % (42.0-52.0); HEMOGLOBIN 14.1 g/dl (13.5-18.0); LYMPH # 0.5 (1.2-3.4); MEAN CELL VOLUME 101 fl (80.0-100.0); MEAN CORPUSCULAR HEMOGLOBIN 35 pg (27.0-31.0); MEAN CORPUSCULAR HGB CONC 35 g/dl (33.0-37.0); MEAN PLATELET VOLUME 12.2 fl (7.4-10.4); MONO # 0.7 (0.1-0.6); MONO % 8.1 % (1.7-9.3); PLATELET COUNT 69 K/mm3 (130-400); RED BLOOD COUNT 3.99 M/mm3 (4.20-5.60); REDCELL DISTRIBUTION WIDTH-CV 12.4 % (11.5-14.5)
[2020-11-24 12:47] VITALS: BP 127/95; PULSE 112; TEMP 99.2
[2020-11-24 14:19] VITALS: BP 141/93; PULSE 112
[2020-11-24 16:29] VITALS: BP 138/87; PULSE 110; TEMP 99.2
[2020-11-24] MEDS ORDERED: NATURAL POTASS595 MG (16:33)
[2020-11-24 18:00] VITALS: BP 127/90; PULSE 112; TEMP 98.7
--- NOTE | 2020-11-24 18:24 | NUR ---
This patient continues to be confused and is hallucinating. The patient has told this RN multiple times that his roommate was in the bathroom, when nobody has been in the room with him. He has also asked if he is stepping on a sandwich. The patient told this RN that he is currently in [place]. This RN reminded the patient that he is at [facility] in [place], [place]. The patient then stated, "Thats right, then I go to [facility] and if I dont go there I go to detention".
[2020-11-24 19:37] VITALS: BP 140/89; PULSE 106; TEMP 98.1
--- NOTE | 2020-11-24 20:00 | NUR ---
Report received, assume care for night court magistrate. Assessment complete. Confused with hallucinations. Scoring 9 on detox protocol. Very restless continuoulsy trying to get over the side rails. Removing clothing and tele monitor. Call Bed alarm is on. Will monitor.
[2020-11-24 22:03] VITALS: BP 112/92; PULSE 107; PULSE 60; TEMP 99.2
[2020-11-25] VITALS (12 sets, daily range): BP systolic 122–151; BP diastolic 84–97; PULSE 89–119; TEMP 98.1–99.6
--- NOTE | 2020-11-25 02:56 | NUR ---
INT To left hand was pulled out-cath intact.
[2020-11-25 06:52] LABS: COLLECTION METHOD CLEAN CATCH
[2020-11-25 07:00] LABS: MUCOUS Present /lpf; PH 8 (5-8); SQUAMOUS EPITHELIAL 0-2 /hpf; URINE APPEARANCE Clear; URINE BACTERIA None Seen /hpf; URINE BILIRUBIN Positive (NEGATIVE); URINE BLOOD Negative (NEGATIVE); URINE COLOR Amber; URINE GLUCOSE Negative (NEGATIVE); URINE KETONE 1+ (NEGATIVE); URINE LEUKOCYTE ESTERASE Negative (NEGATIVE); URINE NITRATE Negative (NEGATIVE); URINE PROTEIN(semi-quant) 1+ (NEGATIVE); URINE RBC 0-2 /hpf; URINE UROBILINOGEN >=4.0 mg/dL (NEGATIVE)
[2020-11-25 07:12] LABS: TRICYCLIC ANTIDEPRESS URINE NEGATIVE
[2020-11-25 08:02] LABS: BASO % 0.3 % (0.0-2.0); GRAN # 11.8 (1.4-6.5); GRAN % 84.1 % (42.2-75.2); HEMATOCRIT 39.7 % (42.0-52.0); HEMOGLOBIN 13.7 g/dl (13.5-18.0); LYMPH % 7.1 % (20.0-51.0); MEAN CELL VOLUME 104 fl (80.0-100.0); MEAN CORPUSCULAR HEMOGLOBIN 36 pg (27.0-31.0); MEAN CORPUSCULAR HGB CONC 35 g/dl (33.0-37.0); MEAN PLATELET VOLUME 13.4 fl (7.4-10.4); MONO # 1.1 (0.1-0.6); MONO % 7.9 % (1.7-9.3); PLATELET COUNT 65 K/mm3 (130-400); RED BLOOD COUNT 3.82 M/mm3 (4.20-5.60); REDCELL DISTRIBUTION WIDTH-CV 12.4 % (11.5-14.5)
[2020-11-25 08:10] LABS: ALBUMIN 3.6 gm/dL (3.5-5.0); BILIRUBIN,TOTAL 5.9 mg/dL (0.0-1.0); CALCIUM 8.8 mg/dL (8.4-10.2); CREATININE, serum 0.46 (0.66-1.25); MAGNESIUM 1.7 mg/dL (1.6-2.3); POTASSIUM 3.5 mmol/L (3.4-5.0); TOTAL PROTEIN 7.1 gm/dL (6.4-8.2)
--- NOTE | 2020-11-25 08:37 | NUR ---
Assessment completed, patient is drowsy but alert and arouses to name, he is very disoriented and restless, unable to answer any questions or follow any commands, vital signs stable, does not appear to be in pain, 8-10 on CIWA and treating per protocol, heart regular/ Tachy , lungs CTA/ diminished, adult diaper on and patient incontinent, patient has bumps/bruises/abrasion/lacerations all over his body, especially to his arms and legs, seizure pads and p/c in place, bed alarm is set, will continue to monitor
--- NOTE | 2020-11-25 20:07 | NUR ---
Received report from Manuel. Patient is drowsy, pulled his tele and his diaper. Changed patient's chucks and gown. Repositioned him in bed. He wanted to brush his teeth, he was able to do half of it and then STAY CUTTER helped him afterwards.
[2020-11-26] VITALS (12 sets, daily range): BP systolic 119–149; BP diastolic 80–106; PULSE 91–127; TEMP 98–99.2
--- NOTE | 2020-11-26 06:33 | NUR ---
Patient had episode of restlessness and trying to get out of bed at around 0130H. It lasted for at least 2 hrs. Ativan given on a full dose of 2mg. Changed patient's diaper, gown and bedsheets couple times this night, last change was at 0600H.
[2020-11-26 07:50] LABS: BASO # 0.1 (0.0-0.2); BASO % 0.8 % (0.0-2.0); EOS # 0.1 (0.0-0.7); EOS % 1.1 % (0-4.0); GRAN % 73.8 % (42.2-75.2); HEMATOCRIT 39.4 % (42.0-52.0); HEMOGLOBIN 13.4 g/dl (13.5-18.0); LYMPH # 1.7 (1.2-3.4); LYMPH % 14.1 % (20.0-51.0); MEAN CELL VOLUME 105 fl (80.0-100.0); MEAN CORPUSCULAR HEMOGLOBIN 36 pg (27.0-31.0); MEAN CORPUSCULAR HGB CONC 34 g/dl (33.0-37.0); MEAN PLATELET VOLUME 13.2 fl (7.4-10.4); MONO # 1.2 (0.1-0.6); MONO % 9.9 % (1.7-9.3); PLATELET COUNT 85 K/mm3 (130-400); RED BLOOD COUNT 3.74 M/mm3 (4.20-5.60); REDCELL DISTRIBUTION WIDTH-CV 12.3 % (11.5-14.5)
[2020-11-26 08:08] LABS: ALBUMIN 3.4 gm/dL (3.5-5.0); BILIRUBIN,TOTAL 4.9 mg/dL (0.0-1.0); CALCIUM 8.6 mg/dL (8.4-10.2); CREATININE, serum 0.47 (0.66-1.25); MAGNESIUM 1.5 mg/dL (1.6-2.3); TOTAL PROTEIN 6.8 gm/dL (6.4-8.2)
--- NOTE | 2020-11-26 09:00 | NUR ---
Assessment completed, drowsy but arousable to name, patient is able to answer some questions and follow simple commands appropriately which is an improvement from yesterday, vital signs stable/ still slighty tachy and HTN at times, 8-10 scores on CIWA protocol and treating accordingly, Mg and Potassium being replaced by IV, patient is able to take sips of PO intake but otherwise not eating and frankly not safe at this to attempt significant PO intake, remains very high fall risk/ fall p/c in place and bed alarm is set, on toileting schdule for urination but still having some incontinence, bed bath aand hygeine provided, will continue to monitr
--- NOTE | 2020-11-26 19:02 | NUR ---
Received report from Manuel. Patient currently asleep. Still having a high alcohol detox score. On a high fall risk. Bed alarm on.
--- NOTE | 2020-11-26 22:58 | NUR ---
Patient wanting to get out of bed as he wants to smoke and go to school. Informed him this is a non-smoking facility and re-oriented him. Changed patient's bedsheets, gown and diaper.
[2020-11-27] VITALS (12 sets, daily range): BP systolic 116–149; BP diastolic 75–97; PULSE 86–108; TEMP 97.7–98.9
--- NOTE | 2020-11-27 00:15 | NUR ---
IV on right wrist was not in place anymore. Nargis DRAPER reinsert IV G18 on left forearm.
--- NOTE | 2020-11-27 06:10 | NUR ---
Patient still scoring 10-12 on CIWA. Still with episodes of being agitated and restlessness. Ativan given 2mg every 2 hours.
[2020-11-27 06:52] LABS: BASO # 0.1 (0.0-0.2); EOS # 0.2 (0.0-0.7); EOS % 1.9 % (0-4.0); GRAN # 6.4 (1.4-6.5); GRAN % 66.3 % (42.2-75.2); HEMOGLOBIN 13.3 g/dl (13.5-18.0); LYMPH # 1.5 (1.2-3.4); LYMPH % 15.5 % (20.0-51.0); MEAN CELL VOLUME 106 fl (80.0-100.0); MEAN CORPUSCULAR HEMOGLOBIN 35 pg (27.0-31.0); MEAN CORPUSCULAR HGB CONC 33 g/dl (33.0-37.0); MEAN PLATELET VOLUME 12.4 fl (7.4-10.4); MONO # 1.4 (0.1-0.6); MONO % 14.7 % (1.7-9.3); PLATELET COUNT 109 K/mm3 (130-400); RED BLOOD COUNT 3.77 M/mm3 (4.20-5.60); REDCELL DISTRIBUTION WIDTH-CV 12.3 % (11.5-14.5)
[2020-11-27 07:04] LABS: ALBUMIN 3.3 gm/dL (3.5-5.0); BILIRUBIN,TOTAL 4.2 mg/dL (0.0-1.0); CALCIUM 8.8 mg/dL (8.4-10.2); CREATININE, serum 0.4 (0.66-1.25); MAGNESIUM 1.6 mg/dL (1.6-2.3); POTASSIUM 3.5 mmol/L (3.4-5.0); TOTAL PROTEIN 6.7 gm/dL (6.4-8.2)
[2020-11-27 07:32] LABS: INR 1.2 (0.8-3.0); PROTHROMBIN TIME 13.1 SECONDS (9.7-12.8)
--- NOTE | 2020-11-27 15:28 | NUR ---
PT A/OX2, PT PULLED OUT IV FOR 2ND TIME TODAY, MITS PLACED TO PREVENT PULLING OUT OF IV. POTTASIUM INFUSING, N/S INFUSING CONCURRENTLY. NURSE WILL CONTIUE TO MONITOR. BED LOW, PT VISBILE FROM NURSES DESK.
--- NOTE | 2020-11-27 19:04 | NUR ---
Received report from Ivelisse. Patient asleep. With external catheter. Lr at 75ml/hr infusing at left AC.
[2020-11-28] VITALS (10 sets, daily range): BP systolic 104–130; BP diastolic 54–94; PULSE 91–108; TEMP 97.4–99.1
--- NOTE | 2020-11-28 02:30 | NUR ---
Patient was able to remove his mittens and starts to pull out his IV, tele and condom catheter. IV resinserted on left wrist.
[2020-11-28 06:49] LABS: HEMATOCRIT 41.1 % (42.0-52.0); HEMOGLOBIN 13.8 g/dl (13.5-18.0); MEAN CELL VOLUME 106 fl (80.0-100.0); MEAN CORPUSCULAR HEMOGLOBIN 36 pg (27.0-31.0); MEAN CORPUSCULAR HGB CONC 34 g/dl (33.0-37.0); MEAN PLATELET VOLUME 12.1 fl (7.4-10.4); PLATELET COUNT 163 K/mm3 (130-400); RED BLOOD COUNT 3.87 M/mm3 (4.20-5.60); REDCELL DISTRIBUTION WIDTH-CV 12.2 % (11.5-14.5)
[2020-11-28 06:57] LABS: CALCIUM 9.1 mg/dL (8.4-10.2); CREATININE, serum 0.4 (0.66-1.25); MAGNESIUM 1.5 mg/dL (1.6-2.3); POTASSIUM 3.4 mmol/L (3.4-5.0)
[2020-11-28 07:28] LABS: BAND 9 % (0-10); EOSINOPHIL 4 % (0-4); LYMPHOCYTE 20 % (20.0-51.0); NEUTROPHILS 50 % (42.0-75.2); PLATELET ESTIMATE NORMAL (NORMAL)
--- NOTE | 2020-11-28 11:39 | NUR ---
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 MARIZA contacted the patient's mother, Sandie (ph#[phone]), to complete intake. The patient lives alone in [place]. She reports that the patient has been independent with ADLs before hospitalization and does not use any DME. The patient has been set up at [facility] for primary care in the past. Sandie reports that she does not think that the patient has been going to his appointments there. Sandie believes that the patient utilizes [facility] or [facility]. The patient is self pay. SW to consult Financial Counseling. Sandie reports that she does not think that the patient has a DPOA-HC. She reports that the patient is . She states that the patient has one biological daughter, but that his daughter was adopted by someone else. She reports that the patient's father is . MARIZA informed Sandie that she is the patient's legal next of kin. Sandie verbalized understanding. The patient continues to be withdrawing from alcohol. MARIZA to continue to follow. *Discharge plan: unknown at this time. Will continue to follow*
--- NOTE | 2020-11-28 13:36 | NUR ---
PT MUCH MORE RESPONSIVE TODAY THEN YESTERDAY, PT ABLE TO VERBALIZE PAIN, ABLE TO VERBALIZE WHEN HE NEEDS TO USE BATHROOM, REMAINS INCONTINENT, EXTERNAL CATHETER PLACED, FLOWING AND PATENT, PT IS ABLE TO MAKE UNDERSTANDABLE REQUESTS. PT REMAINS MILDY CONFUSED, PT STATES THIS IS YEAR 2001, BUT ABLE TO RELAY WHO THE PRESIDENT. NURSE WILL CONTINUE TO FOLLOW. CALL LIGHT WITHIN REACH.
--- NOTE | 2020-11-28 18:20 | NUR ---
PT COGNITIVELY IMPROVED TODAY, PT WAS ABLE TO HOLD CONVERSATION AND VERBALIZE PAIN LOCATION, PT ALSO ABLE TO STATE WHERE HE WAS. EXTERNAL GREEN STILL ON AND PATENT. PT'S DIET DID NOT ADVANCE TODAY. PT EXPRESSES NO ADDITONAL NEEDS AT THIS TIME. CALL LIGHT WITHIN REACH.
[2020-11-29] VITALS (11 sets, daily range): BP systolic 101–138; BP diastolic 44–103; PULSE 96–109; TEMP 98.3–99.8
--- NOTE | 2020-11-29 04:58 | NUR ---
Bed alarm went for Micheal. GREENHOUSE STAFF runs but he is quick. He was on the floor when we all came to his room . He fell around 0440. His head is on the floor and his foot is hanging to his gallardo. He said he didn't get hurt. His VS is the same from his baseline. He said he is trying to get his gatorade when he fell. Shavonne came up and assess him. He is alert and oriented and can communicate verbally. He denies SOB and pain. continue to monitor.
[2020-11-29 06:46] LABS: HEMATOCRIT 41.7 % (42.0-52.0); HEMOGLOBIN 14.4 g/dl (13.5-18.0); MEAN CELL VOLUME 106 fl (80.0-100.0); MEAN CORPUSCULAR HEMOGLOBIN 37 pg (27.0-31.0); MEAN CORPUSCULAR HGB CONC 35 g/dl (33.0-37.0); MEAN PLATELET VOLUME 11.6 fl (7.4-10.4); PLATELET COUNT 225 K/mm3 (130-400); RED BLOOD COUNT 3.95 M/mm3 (4.20-5.60); REDCELL DISTRIBUTION WIDTH-CV 12.5 % (11.5-14.5)
[2020-11-29 06:55] LABS: ALBUMIN 3.6 gm/dL (3.5-5.0); BILIRUBIN,TOTAL 2.9 mg/dL (0.0-1.0); CALCIUM 9.4 mg/dL (8.4-10.2); CREATININE, serum 0.44 (0.66-1.25); MAGNESIUM 1.3 mg/dL (1.6-2.3); POTASSIUM 3.6 mmol/L (3.4-5.0); TOTAL PROTEIN 7.4 gm/dL (6.4-8.2)
[2020-11-29 07:57] LABS: BAND 11 % (0-10); EOSINOPHIL 3 % (0-4); LYMPHOCYTE 27 % (20.0-51.0); NEUTROPHILS 44 % (42.0-75.2)
[2020-11-29 07:58] LABS: PLATELET ESTIMATE NORMAL (NORMAL)
--- NOTE | 2020-11-29 10:27 | NUR ---
PT AOX3, CONFUSED ON TIME, ORIENTED TO PERSON, PLACE. PT CONFUSED WITH OTHER QUESTIONS WHILE WORKING WITH SPEECH THERAPY. PT EXPRESSED PAIN IN RIGHT THIGH, NO REDNESS, SWELLING, OR WARMTH NOTED. PT HAS GENERALIZED ABRAISONS OVER LOWER EXTREMITIES. PT HAS BRUISE OVER LEFT FLANK. MILD YELLOWING OF SCLERA NOTED AT THIS TIME. PT HAS COOL TEMPERATURE OF FEET BILATERALLY, COVERED WITH BLANKET AT THIS TIME.
--- NOTE | 2020-11-29 17:46 | NUR ---
Pt had intermittent confusion during shift. Pt re-oriented often. CIWA score 4-8 in AM and 2 for PM assessment. Neuro checks q4 performed this shift, no abnormalities noted at this time. PRN ativan given this shift. Pt complained of pain in right thigh during AM assessment, no swelling, warmth, redness noted at this time. During PM pt denied pain in leg. Pt received potassium replacement and magnesium replacement per protocol AM labs were K+ 3.6 and Magnesium 1.3. Fall risk precautions maintained, pt free from injury during this shift. Generalized abraisons noted on lower extremities and forehead. No swelling, pain, warmth, or draingage noted at this time. Pt able to express needs during shift.
[2020-11-30] VITALS (7 sets, daily range): BP systolic 112–124; BP diastolic 71–89; PULSE 96–114; TEMP 98.3–100
--- NOTE | 2020-11-30 05:24 | NUR ---
Micheal was not that bad last night compared the other night. He is more calm and easily redirected last night. RN tried to put a external catheter but he said its uncomfortable and its painful. It was pulled out instead. He got 2x of Ativan last night. His CIWA is between 5 to 7. He talked to his mom last night in his cellphone and I think it helps him to be more calm. Bed alarm is on and call light is within reach. He call sometimes for drink and some other things. But most of the time he doesn't. Continue to monitor.
[2020-11-30 06:50] LABS: HEMOGLOBIN 14.7 g/dl (13.5-18.0); MEAN CELL VOLUME 107 fl (80.0-100.0); MEAN CORPUSCULAR HEMOGLOBIN 36 pg (27.0-31.0); MEAN CORPUSCULAR HGB CONC 33 g/dl (33.0-37.0); MEAN PLATELET VOLUME 11.7 fl (7.4-10.4); PLATELET COUNT 274 K/mm3 (130-400); RED BLOOD COUNT 4.13 M/mm3 (4.20-5.60); REDCELL DISTRIBUTION WIDTH-CV 12.7 % (11.5-14.5)
[2020-11-30 06:54] LABS: ALBUMIN 3.6 gm/dL (3.5-5.0); CALCIUM 9.6 mg/dL (8.4-10.2); CREATININE, serum 0.51 (0.66-1.25); MAGNESIUM 1.6 mg/dL (1.6-2.3); POTASSIUM 3.5 mmol/L (3.4-5.0); TOTAL PROTEIN 7.4 gm/dL (6.4-8.2)
[2020-11-30 06:58] LABS: INR 1.2 (0.8-3.0)
[2020-11-30 07:16] LABS: BAND 5 % (0-10); EOSINOPHIL 1 % (0-4); LYMPHOCYTE 35 % (20.0-51.0); METAMYELOCYTE 1 % (0-0); NEUTROPHILS 33 % (42.0-75.2); PLATELET ESTIMATE NORMAL (NORMAL)
--- NOTE | 2020-11-30 09:28 | NUR ---
Assessment completed, drowsy but arousable and partially oriented to person and place, reports generlized aches/pains, vital signs stable/ still tachy and low grade temps, scored 7 on CIWA morning, he is getting stronger and able to transfer to BSC with 2x assist, stil lhaving some incontinence and is still very impulsive, ST in with patient to asssit with breakfast/ mech soft diet with thickened liquids and still high aspiration risk, lungs coarse throughout, will continue to monitor, bed alarm is set and call light in reach
--- NOTE | 2020-11-30 14:34 | NUR ---
PT is recommending IPR > SNF. The patient is self pay. SW consulted IPR Director, Rosalba.
--- NOTE | 2020-11-30 20:02 | NUR ---
Assesment completed. Patient currently eating his dinner. He is much better now and scoring for CIWA at 5. He is still tachycardic. He denies pain. Bed alarm on. Still with weakness.
--- NOTE | 2020-11-30 22:00 | NUR ---
Patient doesn't use his call light and would just try to get out of bed when he needs to go to the bathroom. He is one assist and with impaired gait. Tremors on his hands are visibly reduced compared to the last few days. Call light within reach. Bed alarm maintained on at all times. He didn't finished his dinner. He did take small bites and drink glass of sprite.
[2020-12-01] VITALS (7 sets, daily range): BP systolic 113–124; BP diastolic 61–80; PULSE 88–99; TEMP 98.4–99.4
--- NOTE | 2020-12-01 03:14 | NUR ---
Patient woke up wanting to sit by the window saying he hasn't seen the outside yet for how many days. Assisted the patient to the window seat. Changed bedsheets,gown and briefs. Offered bath wipes to patient and he agreed. He stayed by the window for at least 10 minutes. Assisted him back to bed and he return back to sleep.
[2020-12-01 07:05] LABS: HEMATOCRIT 43.8 % (42.0-52.0); HEMOGLOBIN 14.7 g/dl (13.5-18.0); MEAN CELL VOLUME 106 fl (80.0-100.0); MEAN CORPUSCULAR HEMOGLOBIN 36 pg (27.0-31.0); MEAN CORPUSCULAR HGB CONC 34 g/dl (33.0-37.0); MEAN PLATELET VOLUME 11.9 fl (7.4-10.4); PLATELET COUNT 301 K/mm3 (130-400); RED BLOOD COUNT 4.13 M/mm3 (4.20-5.60); REDCELL DISTRIBUTION WIDTH-CV 12.6 % (11.5-14.5)
[2020-12-01 07:19] LABS: CALCIUM 9.7 mg/dL (8.4-10.2); CREATININE, serum 0.53 (0.66-1.25); MAGNESIUM 1.7 mg/dL (1.6-2.3); POTASSIUM 3.9 mmol/L (3.4-5.0)
--- NOTE | 2020-12-01 11:43 | NUR ---
Assessment completed, more alert today and oriented to person and place, denies pain when asked, vital signs have been stable/ still slightly tachy at times with low grade temps, CIWA scores are improved and he is not requiring hardly any Ativan, he is less impulsive and more cooperative and interactive, he can answer questions appropriately and follow commands, he is getting physically stronger and is able to stand and ambulate for transfers with asssitance, his appetite is improve and tolerating more PO intake, ST following and his swallow function also improving and we are slowly advancing his diet, overall showing good improvement, replacing Mg and K per orders, denies needs, will continue to monitor, bed alarm is in place
--- NOTE | 2020-12-01 13:54 | NUR ---
SW met with the patient to discuss the possiblity of going to IPR if able to accept and if approved. The patient is agreeable to going to IPR. SW contacted and updated the patient's mother, Sandie. Sandie is also agreeable to IPR. Sandie reports that she will be up to the hospital tomorrow to visit the patient. SW to continue to follow. *Discharge plan: IPR-pending hospital approval*
--- NOTE | 2020-12-01 15:02 | NUR ---
Rosalba, IPR Director, reports that she received approval to accept the patient upon discharge. SW to inform the PA.
[2020-12-02 03:31] VITALS: BP 115/73; PULSE 102; TEMP 99.1
--- NOTE | 2020-12-02 05:30 | NUR ---
Micheal is way better than he was. he is awake akert and more oriented now. He didn't get Ativan overnight. He was asleep most of the night . He called last night to use the bathroom for bowel movement. This morning he didn't call he peed in gatorade bottle and accidentally dropped it on the floor. He called when it dropped. He said he peed in the bottle because he dont want me get interrupted to my sleep. He is oriented by this time. He is calm and comfortably lying in bed. I gave him urinal to use. Bed alarm is on and call light is within reach.
[2020-12-02 06:59] LABS: HEMATOCRIT 44.6 % (42.0-52.0); HEMOGLOBIN 14.7 g/dl (13.5-18.0); MEAN CELL VOLUME 108 fl (80.0-100.0); MEAN CORPUSCULAR HEMOGLOBIN 36 pg (27.0-31.0); MEAN CORPUSCULAR HGB CONC 33 g/dl (33.0-37.0); PLATELET COUNT 309 K/mm3 (130-400); RED BLOOD COUNT 4.13 M/mm3 (4.20-5.60); REDCELL DISTRIBUTION WIDTH-CV 12.6 % (11.5-14.5)
[2020-12-02 07:09] LABS: CALCIUM 9.9 mg/dL (8.4-10.2); CREATININE, serum 0.66 (0.66-1.25); MAGNESIUM 1.7 mg/dL (1.6-2.3); POTASSIUM 3.6 mmol/L (3.4-5.0)
[2020-12-02 08:16] VITALS: BP 106/67; PULSE 88; TEMP 99.5
[2020-12-02] MEDS ORDERED: KEPPRA 500MG500 MG PO (08:53)
[2020-12-02 12:10] VITALS: BP 114/76; PULSE 99; TEMP 99
--- NOTE | 2020-12-02 13:09 | NUR ---
Patient DC to [facility] today.Nothing follows.
== END 2020-12-02 13:00 | DRG 101 ==
LOC: COL.ER 07:25 → MEDICAL 11:55
PROVIDERS: Emergency Medicine; Internal Medicine; Physician Assistant; ADMIT Internal Medicine
DX: G40.909 Epilepsy, unspecified, not intractable, without status epilepticus (principal); F10.239 Alcohol dependence with withdrawal, unspecified; E87.2 Acidosis; R13.10 Dysphagia, unspecified; D72.829 Elevated white blood cell count, unspecified; R50.9 Fever, unspecified; D69.6 Thrombocytopenia, unspecified; S00.83XA Contusion of other part of head, initial encounter; E83.42 Hypomagnesemia; F17.210 Nicotine dependence, cigarettes, uncomplicated; E87.6 Hypokalemia; R11.2 Nausea with vomiting, unspecified; R00.0 Tachycardia, unspecified; R79.89 Other specified abnormal findings of blood chemistry; G62.1 Alcoholic polyneuropathy; R53.81 Other malaise; Z20.822 Contact with and (suspected) exposure to COVID-19; Z91.14 Patient's other noncompliance with medication regimen; W19.XXXA Unspecified fall, initial encounter; Y90.0 Blood alcohol level of less than 20 mg/100 ml
CPT/HCPCS: 99223-AI; 99232-AI; 99233-AI; 99239; J1650; J1953; J2060; J2405; J3411; J3475; J3480; J7030; J7120

== ENCOUNTER 2020-12-02 11:32 | Inpatient (IN) | payer SELFPAY ==
[~2020-12-02] VITALS: Ht 177.8 cm; Wt 81.2 kg
[~2020-12-02 11:32] MED LIST changes: +NATURAL POTASS595 MG
[2020-12-02 13:55] VITALS: BP 111/74; PULSE 103; TEMP 98.5
--- NOTE | 2020-12-02 13:55 | NUR ---
Patient to room 337 from the medical floor by wheelchair. Nurse oriented the patient to location, room and call light. Assessment complete and family at the bedside. Seizure precautions in place. Patient instructed to call nursing staff for assistance with ambulation. Denies pain and discomfort. VSS. Call light within reach. Bed alarm on and door left open
--- NOTE | 2020-12-02 17:50 | NUR ---
Patient sitting up in bed eatting dinner. Patient likes the room to be dark. Has set off the bed alarm several times, needing to use the bathroom. Has called the nursing staff once for assistance with ambulation to the bathroom. VSS. Denies pain and discomfort. No further needs. Call light within reach. Bed alarm on and door left open
[2020-12-02 18:00] VITALS: BP 119/81; PULSE 97; TEMP 98.2
--- NOTE | 2020-12-02 21:22 | NUR ---
PATIENT IS RESTING IN BED.DUE MEDS GIVEN.EDUCATED ABOUT SAFETY.SAFETY MEASURES IN PLACE.DENIES PAIN.NO OTHER NEEDS AT THIS TIME.
[2020-12-03 04:38] VITALS: BP 119/78; PULSE 100; TEMP 98.2
--- NOTE | 2020-12-03 06:14 | NUR ---
PATIENT HAD A RESTFUL NIGHT.DENIES PAIN.SOMETIMES FORGETS ABOUT SAFETY.SAFETY MEASURES IN PLACE.NO OTHER NEEDS AT THIS TIME.
--- NOTE | 2020-12-03 08:52 | NUR ---
Patient tolerated breakfast. He is frustrated by [facility] soft diet, wanting lorenzana for breakfast. Reviewed with him that he needs to be cleared by speech first. Fall risk precautions in place and reviewed with patient. Will monitor.
--- NOTE | 2020-12-03 13:28 | NUR ---
Patient did not eat well for lunch. Does not like [facility] soft food. Patient to be evaluated by speech prior to diet advancement per .
--- NOTE | 2020-12-03 13:39 | NUR ---
Ipr care plan initiated.
--- NOTE | 2020-12-03 16:02 | NUR ---
Patient stand by assist to the bathroom & voided. He has been listneing to music most of the day. denies needs.
[2020-12-03 16:55] VITALS: BP 109/81; PULSE 87; TEMP 98.1
--- NOTE | 2020-12-03 17:45 | NUR ---
Patient did not enjoy dinner. Up to the bathroom stand by assist. High fall risk protocol followed. Will wang & report off to nightnurse
--- NOTE | 2020-12-03 21:00 | NUR ---
PT RESTING IN BED. SEIZURE PRECAUTIONS CONTINUED. NO SEIZURE ACTIVTY NOTED. ASSISTED TO BR. STEADY GAIT. BACK TO BED. DENIES NEEDS AT THIS TIME. CALL LIGHT IN REACH. BED ALARM SET.
[2020-12-04 05:34] VITALS: BP 111/74; PULSE 89; TEMP 99.3
--- NOTE | 2020-12-04 06:30 | NUR ---
Report received from BONNY Barnard. Patient is sleeping in bed. Call light and bedside table are within reach. Will continue to monitor patient throughout shift.
[2020-12-04 08:54] VITALS: TEMP 98.5
[2020-12-04 16:10] VITALS: BP 111/74; PULSE 91; TEMP 98.2
--- NOTE | 2020-12-04 19:06 | NUR ---
RECEIVED CHANGE OF SHIFT REPORT FROM DAY SHIFT NURSE. BED ALARM ON, CALL LIGHT WITHIN REACH.
--- NOTE | 2020-12-05 | NUR ---
PATIENT AWAKE WATCHING TV. REPORTS NO NEEDS WHEN STAFF ENTER ROOM. BED ALARM ON, CALL LIGHT WITHIN REACH.
--- NOTE | 2020-12-05 01:25 | NUR ---
SLEEPING, DOES NOT WAKE WHEN STAFF ENTER ROOM. BED ALARM ON, CALL LIGHT WITHIN REACH. RESPIRATIONS NONLABORED AND EVEN.
[2020-12-05 02:01] VITALS: BP 123/78; PULSE 84; TEMP 98.4
--- NOTE | 2020-12-05 06:30 | NUR ---
REPORT RECEIVED FROM BONNY MOORE. PATIENT IS IN BED SLEEPING. CALL LIGHT AND BEDSIDE TABLE AND WITHIN REACH. WILL CONTINUE TO MONITOR PATIENT THROUGOUT SHIFT.
[2020-12-05 07:02] VITALS: BP 109/80; PULSE 90; TEMP 99.2
--- NOTE | 2020-12-05 07:04 | NUR ---
CHANGE OF SHIFT REPORT GIVEN TO DAY SHIFT NURSE, EMILY DRAPER.
[2020-12-05 12:10] VITALS: BP 108/75; PULSE 94; TEMP 97.5
--- NOTE | 2020-12-05 14:39 | NUR ---
PATIENT IS RESTING COMFORTABLY IN BED. PATIENT IS NOW MOD I IN ROOM. ALL THERAPIES ARE COMPLETE. WILL CONTINUE TO MONITOR PATIENT TROUGHTOUT SHIFT.
--- NOTE | 2020-12-05 14:46 | NUR ---
Admission QIM scores were reviewed by the team. Code of 4 chosen for oral hygiene was determined by team discussion to be the most usual performance before interventions for this patient during the assessment period. Code of 4 chosen for toilet hygiene was determined by team discussion to be the most usual performance for this patient during the assessment period. Code of 4 for sit to stand was determined by team discussion to be the most usual performance for this patient during the assessment period.--Rosalba Yoder, PD
[2020-12-05 16:15] VITALS: BP 124/84; PULSE 88; TEMP 98.6
--- NOTE | 2020-12-05 16:34 | NUR ---
Chainman met with the patient. The patient lives alone in [place]. He denies DME use and is independent. The patient does not have a PCP but has been seen at [facility] in the past and is agreeable to setting up an appointment there at discharge. The patient receives medications at [facility]. The patient discussed going to alcohol rehab post discharge. He states it is court ordered. SW to provide the patient with [facility] information so that he can coordinate a screen with them in order to see if he qualifies for alcohol rehab at this time. SW will continue to follow to ensure the safest discharge.
--- NOTE | 2020-12-05 19:00 | NUR ---
RECEIVED CHANGE OF SHIFT REPORT FROM DAY SHIFT NURSE. PATIENT UP IN ROOM INDEPENDENTLY WITH NO REPORTED PROBLEMS OR CONCERNS. DENIES ANY NEEDS DURING REPORT.
--- NOTE | 2020-12-05 20:00 | NUR ---
DENIES CHEST PAIN/SOA/NAUSEA AT THIS TIME. UP IN ROOM PER SELF WITH NO REPORTED PROBLEMS OR CONCERNS.
--- NOTE | 2020-12-06 | NUR ---
SLEEPING, DOES NOT WAKE WHEN STAFF ENTER ROOM. BREATHING NONLABORED AND EVEN.
[2020-12-06 04:12] VITALS: BP 120/81; PULSE 71; TEMP 97.4
--- NOTE | 2020-12-06 06:30 | NUR ---
PATIENT RESTING IN BED. CALL LIGHT AND BEDSIDE TABLE ARE WITHIN REACH. WILL CONTINUE TO MONITOR PATIENT THROUGHOUT SHIFT.
--- NOTE | 2020-12-06 06:56 | NUR ---
CHANGE OF SHIFT REPORT GIVEN TO DAY SHIFT NURSE, EMILY DRAPER.
--- NOTE | 2020-12-06 10:35 | NUR ---
Called Dr. Hernandez's office to schedule appointment and was informed the patient has to call and make appointment d/t previous collection. Will inform patient.
--- NOTE | 2020-12-06 15:05 | NUR ---
Patient is resting comfortably in room. All therapies are complete. Patient is independent in room. Patient is aware he is discharging tomorrow and appointments have been made. Will continue to monitor patient throughout shift.
--- NOTE | 2020-12-06 16:42 | NUR ---
PATIENT RETURNED TO FLOOR FROM DIALYSIS AND IS CURRENTLY IN THE BATHROOM.
[2020-12-06 18:00] VITALS: BP 115/63; PULSE 92; TEMP 98.8
--- NOTE | 2020-12-06 21:00 | NUR ---
PT RESTING IN BED. MOD I ROOM. DENIES NEEDS AT THIS TIME. CALL LIGHT IN REACH.
[2020-12-07 04:15] VITALS: BP 113/63; PULSE 75; TEMP 97.8
[2020-12-07] MEDS ORDERED: MAG-OX 400400 MG/TAB PO (08:34)
[2020-12-07] MEDS ORDERED: FOLIC ACID 11 MG/TA1 PO (08:34)
[2020-12-07] MEDS ORDERED: THIAMINE 1100 MG/TAB PO (08:34)
[2020-12-07] MEDS ORDERED: KEPPRA1000 MG PO (08:34)
[2020-12-07] MEDS ORDERED: DUO-KAPS1 CAP PO (08:35)
--- NOTE | 2020-12-07 09:34 | NUR ---
Patient resting in bed, call light in reach and independent in his room. Will continue to monitor.
--- NOTE | 2020-12-07 13:44 | NUR ---
Patient Health Summary, Discharge Summary, and Home Meds printed and reviewed with patient. Stressed importance of follow up appointments. Reviewed medications, provided printed Good RX prescription for Levetiracetam to patient. Belongings gathered by XAVIER/George including home medications retrieved from the [facility] to return to patient; cell phone and physiognomist; cigeretts and metal case along with other personal items. Patient walked with George/XAVIER to patient's mothers car for a ride home. Patient denied questions.
--- NOTE | 2020-12-07 14:44 | NUR ---
The patient discharged home with his mother today, 12/07 with [facility] Program. [facility] Armhole Baster met with the patient to provide alcohol use resources. SW provided [facility] contact information. The patient states he has been in contact with [facility] to have an eval for placement. The patient states he has been in contact with his PO regarding placement. The patient understood it is his responsiblity to set up a screen for placement with [facility] or [facility]. There are no additional needs.
== END 2020-12-07 13:35 | disposition home or self-care (01) | DRG 948 ==
PROVIDERS: ADMIT Internal Medicine
DX: R53.81 Other malaise (principal); G72.1 Alcoholic myopathy; E87.2 Acidosis; E83.42 Hypomagnesemia; K76.0 Fatty (change of) liver, not elsewhere classified; G40.909 Epilepsy, unspecified, not intractable, without status epilepticus; S00.83XD Contusion of other part of head, subsequent encounter; S00.81XD Abrasion of other part of head, subsequent encounter; D69.6 Thrombocytopenia, unspecified; F10.10 Alcohol abuse, uncomplicated; F17.210 Nicotine dependence, cigarettes, uncomplicated; W18.30XD Fall on same level, unspecified, subsequent encounter; R13.10 Dysphagia, unspecified; R00.0 Tachycardia, unspecified
CPT/HCPCS: 99222-AI; 99231-AI; 99232-AI; 99239; J1650

== ENCOUNTER 2021-05-21 10:27 | Emergency (ER) | payer SELFPAY ==
[~2021-05-21] VITALS: Ht 177.8 cm; Wt 81.8 kg
[~2021-05-21 10:27] MED LIST changes: +KEPPRA1000 MG PO
[2021-05-21 10:53] VITALS: TEMP 98
[2021-05-21] MEDS ORDERED: PERCOCET 325 MG1 TA2 PO (14:17)
[2021-05-21 14:47] VITALS: BP 155/103; PULSE 83
== END 2021-05-21 14:47 | disposition home or self-care (01) ==
LOC: COL.ER 10:27
DX: S22.31XA Fracture of one rib, right side, initial encounter for closed fracture (principal); F17.210 Nicotine dependence, cigarettes, uncomplicated; Z86.69 Personal history of other diseases of the nervous system and sense organs; Y04.0XXA Assault by unarmed brawl or fight, initial encounter
CPT/HCPCS: A9284

== ENCOUNTER 2022-05-29 09:26 | Emergency (ER) | payer SELFPAY ==
[~2022-05-29] VITALS: Ht 175.3 cm; Wt 77.3 kg
[~2022-05-29 09:26] MED LIST changes: +PERCOCET 325 MG1 TA2 PO
[2022-05-29] MEDS ORDERED: FLEXERIL 1010 MG/TAB PO (10:22)
[2022-05-29 10:31] VITALS: BP 123/77; PULSE 84; TEMP 98
== END 2022-05-29 10:33 | disposition home or self-care (01) ==
LOC: COL.ER 09:26
DX: G89.29 Other chronic pain (principal); M25.511 Pain in right shoulder; R68.84 Jaw pain; F17.200 Nicotine dependence, unspecified, uncomplicated; Z28.310 Unvaccinated for COVID-19
CPT/HCPCS: J1885

== ENCOUNTER 2022-06-21 12:00 | Emergency (ER) | payer SELFPAY ==
[~2022-06-21] VITALS: Ht 175.3 cm; Wt 77.3 kg
[~2022-06-21 12:00] MED LIST changes: +FLEXERIL 1010 MG/TAB PO
[2022-06-21 12:18] VITALS: TEMP 98.5
[2022-06-21 14:02] VITALS: BP 116/77
[2022-06-21] MEDS ORDERED: PERCOCET 325 MG1 TA2 PO (16:11)
[2022-06-21 16:31] VITALS: PULSE 88
== END 2022-06-21 16:32 | disposition home or self-care (01) ==
LOC: COL.ER 12:00
DX: M25.511 Pain in right shoulder (principal); Z28.310 Unvaccinated for COVID-19
CPT/HCPCS: J1885; J2360

== ENCOUNTER → 2024-01-07 | Outpatient (CLI) | payer OTHER ==
[~2024-01-07] MED LIST changes: +ATIVAN 0.50.5 MG/TAB PO
== END ==
LOC: COL.RAD 10:54
DX: Z02.71 Encounter for disability determination (principal); M47.812 Spondylosis without myelopathy or radiculopathy, cervical region